=== PATIENT | male | born 1980 | race Hispanic/Latino ===

== ENCOUNTER → 2018-12-01 | Outpatient (CLI) | payer MEDICARE | END | disposition home or self-care (01) | LOC: RAH 12:51 | PROVIDERS: ATTEND Orthopaedic Surgery | DX: M16.7 Other unilateral secondary osteoarthritis of hip (principal); K57.30 Diverticulosis of large intestine without perforation or abscess without bleeding; Z98.890 Other specified postprocedural states | CPT/HCPCS: 72192 ==

== ENCOUNTER → 2023-03-12 | Outpatient (CLI) | payer OTHER, MEDICARE | END | disposition home or self-care (01) | LOC: RAH 14:18 | PROVIDERS: ATTEND Student in an Organized Health Care Education/Training Program | DX: M16.12 Unilateral primary osteoarthritis, left hip (principal); M87.052 Idiopathic aseptic necrosis of left femur | CPT/HCPCS: 73700 ==

== ENCOUNTER → 2023-12-09 | Outpatient (CLI) | payer OTHER, MEDICARE | END | disposition home or self-care (01) | LOC: RAH 13:07 | PROVIDERS: ATTEND Internal Medicine | DX: M41.85 Other forms of scoliosis, thoracolumbar region (principal); M95.5 Acquired deformity of pelvis | CPT/HCPCS: 72082 ==

== ENCOUNTER → 2024-04-07 | Outpatient (CLI) | payer OTHER, MEDICARE ==
--- NOTE | 2024-04-07 13:46 | HMCIMG ---
CHEST 2VWS REASON: PREOP COMPARISON: None FINDINGS: Two views of the chest were obtained. Lungs are clear. Heart size is normal. There is no pulmonary vascular congestion. Mediastinum and bony thorax appear unremarkable. IMPRESSION: Normal two view chest x-ray.
== END | disposition home or self-care (01) ==
LOC: RAH 12:08
PROVIDERS: ATTEND Internal Medicine
DX: Z01.818 Encounter for other preprocedural examination (principal)
CPT/HCPCS: 71046

== ENCOUNTER → 2024-07-13 | Outpatient (CLI) | payer OTHER, MEDICARE ==
--- NOTE | 2024-07-13 12:26 | HMCIMG ---
PELVIS 1-2VWS REASON: DEGENERATIVE JOINT DISEASE OF HIP; PELVIS TILTED; SCOLIOSIS TECHNIQUE: 2 views were obtained. FINDINGS: There is a total hip joint prosthesis in place on the left. Hardware appears otherwise unremarkable. Right hip appears normal. Bones of the pelvis appear unremarkable. IMPRESSION: 1. Left hip joint prosthesis in place, hardware appears intact.
--- NOTE | 2024-07-13 12:33 | HMCIMG ---
SCOLIOSIS 1VW REASON: DEGENERATIVE JOINT DISEASE OF HIP; PELVIS TILTED; SCOLIOSIS COMPARISON: None TECHNIQUE: 3 AP views were obtained for scoliosis evaluation. FINDINGS: There is mild dextro scoliosis of the midthoracic spine, 7 degrees. There is 10 degrees levoscoliosis at the thoracolumbar junction. There is 3 to 4 degree compensatory curvature in the lower lumbar spine, convex to the right. There are no anomalous appearing vertebral bodies. IMPRESSION: 1. Mild scoliosis changes as described above.
== END | disposition home or self-care (01) ==
LOC: RAH 11:01
PROVIDERS: ATTEND Internal Medicine
DX: M41.84 Other forms of scoliosis, thoracic region (principal); M41.9 Scoliosis, unspecified; M95.5 Acquired deformity of pelvis; M16.12 Unilateral primary osteoarthritis, left hip
CPT/HCPCS: 72081; 72170